=== PATIENT | male | born 1965 | race Caucasian/White ===

== ENCOUNTER 2018-12-30 10:40 | Day surgery (SDC) | payer OTHER | END 2018-12-30 17:00 | disposition home or self-care (01) | LOC: AMB-ENDOS 10:40 | DX: K57.30 Diverticulosis of large intestine without perforation or abscess without bleeding (principal) ==

== ENCOUNTER 2019-01-26 08:15 | Inpatient (IN) | payer OTHER ==
[~2019-01-26] VITALS: Ht 175.3 cm; Wt 84.8 kg
[2019-02-06] MEDS ORDERED: FENOFIBRIC ACI135 MG PO (08:17)
[2019-02-08] MEDS ORDERED: HYOSCYAMINE0.125 M1 SL (12:00)
[2019-02-08] MEDS ORDERED: OXYC1TAB9 PO (12:00)
== END 2019-02-08 12:28 | disposition home or self-care (01) | DRG 330 ==
LOC: SURG 08:15 → O/R 02-05 11:14 → SURH 02-05 11:14 → SURG 02-05 16:45 → SURH 02-05 19:34
PROVIDERS: ADMIT Surgery
PROC: 07BC4ZZ Excision of Pelvis Lymphatic, Percutaneous Endoscopic Approach (ICD-10-PCS; 2019-02-05)
PROC: 0D1B4Z4 Bypass Ileum to Cutaneous, Percutaneous Endoscopic Approach (ICD-10-PCS; 2019-02-05)
PROC: 0DJD8ZZ Inspection of Lower Intestinal Tract, Via Natural or Artificial Opening Endoscopic (ICD-10-PCS; 2019-02-05)
PROC: 0DTP4ZZ Resection of Rectum, Percutaneous Endoscopic Approach (ICD-10-PCS; principal; 2019-02-05 16:45)
DX: C20 Malignant neoplasm of rectum (principal); K92.1 Melena; K63.89 Other specified diseases of intestine; R59.0 Localized enlarged lymph nodes; E78.49 Other hyperlipidemia; D64.89 Other specified anemias

== ENCOUNTER 2019-03-16 05:35 | Day surgery (SDC) | payer OTHER ==
[~2019-03-16 05:35] MED LIST: FENOFIBRIC ACI135 MG PO; HYOSCYAMINE0.125 M1 SL; OXYC1TAB9 PO; SIMVASTATIN40 MG
[2019-03-16] MEDS ORDERED: ULTRACET PO (08:24)
== END 2019-03-16 10:23 | disposition home or self-care (01) ==
LOC: CIR.AMB 05:35
DX: C20 Malignant neoplasm of rectum (principal)
CPT/HCPCS: 36561; C1751

== ENCOUNTER → 2019-04-30 | Outpatient (CLI) | payer OTHER ==
[~2019-04-30] MED LIST changes: +ULTRACET PO
== END | disposition home or self-care (01) ==
LOC: RX STUDY 10:25
DX: C20 Malignant neoplasm of rectum (principal); K92.1 Melena; R59.0 Localized enlarged lymph nodes

== ENCOUNTER 2019-05-14 11:30 | Inpatient (IN) | payer OTHER ==
[2019-06-05] MEDS ORDERED: HYOSCYAMINE0.125 M1 SL (16:33)
[2019-06-05] MEDS ORDERED: INTESTINEX680 M1 PO (16:33)
[2019-06-05] MEDS ORDERED: OXYC1TAB9 PO (16:33)
[2019-06-05] MEDS ORDERED: VANCOMYCIN HCL1 GM PO (16:35)
== END 2019-06-05 17:23 | disposition home or self-care (01) | DRG 330 ==
LOC: SURG 05-25 10:30 → SURH 05-28 06:45 → O/R 05-28 06:45 → SURG 05-28 10:30 → SURH 05-28 11:29 → SURG 05-28 15:00 → SURH 06-02 17:05
PROVIDERS: ADMIT Surgery
PROC: 0DQB4ZZ Repair Ileum, Percutaneous Endoscopic Approach (ICD-10-PCS; principal; 2019-05-28 15:00)
PROC: 8E0ZXY6 Isolation (ICD-10-PCS; 2019-06-03)
DX: Z43.2 Encounter for attention to ileostomy (principal); C20 Malignant neoplasm of rectum; A04.72 Enterocolitis due to Clostridium difficile, not specified as recurrent; K91.89 Other postprocedural complications and disorders of digestive system; K56.7 Ileus, unspecified; D64.89 Other specified anemias; R73.01 Impaired fasting glucose

== ENCOUNTER 2020-02-02 07:56 | Day surgery (SDC) | payer OTHER ==
[~2020-02-02 07:56] MED LIST changes: +INTESTINEX680 M1 PO; +VANCOMYCIN HCL1 GM PO
== END 2020-02-02 12:45 | disposition home or self-care (01) ==
LOC: AMB-ENDOS 07:56
PROVIDERS: ATTEND Surgery
DX: K62.89 Other specified diseases of anus and rectum (principal)

== ENCOUNTER 2020-07-12 13:32 | Emergency (ER) | payer OTHER ==
[~2020-07-12] VITALS: Ht 175.3 cm; Wt 78.0 kg
[2020-07-12] MEDS ORDERED: SIMVASTATIN5 MG (13:41)
[2020-07-12] MEDS ORDERED: CLONAZEPAM0.125 MG (13:42)
== END 2020-07-12 20:52 | disposition home or self-care (01) ==
LOC: ER 13:32
DX: K80.20 Calculus of gallbladder without cholecystitis without obstruction (principal); N20.0 Calculus of kidney; Z03.818 Encounter for observation for suspected exposure to other biological agents ruled out

== ENCOUNTER 2020-08-11 05:50 | Day surgery (SDC) | payer OTHER ==
[~2020-08-11 05:50] MED LIST changes: +CLONAZEPAM0.125 MG; +SIMVASTATIN5 MG
[2020-08-11] MEDS ORDERED: ULTRACET PO (11:50)
== END 2020-08-11 13:25 | disposition home or self-care (01) ==
LOC: CIR.AMB 05:50
PROVIDERS: ATTEND Surgery
DX: C20 Malignant neoplasm of rectum (principal); Z20.828 Contact with and (suspected) exposure to other viral communicable diseases

== ENCOUNTER 2021-03-21 06:28 | Day surgery (SDC) | payer OTHER | END 2021-03-21 10:40 | disposition home or self-care (01) | LOC: AMB-ENDOS 06:28 | PROVIDERS: ATTEND Surgery | DX: K62.89 Other specified diseases of anus and rectum (principal); Z20.822 Contact with and (suspected) exposure to COVID-19 ==

== ENCOUNTER 2021-11-30 01:50 | Inpatient (IN) | payer OTHER ==
[~2021-11-30] VITALS: Ht 175.3 cm; Wt 75.7 kg
[2021-12-04] MEDS ORDERED: DICY20TA PO (13:55)
[2021-12-04] MEDS ORDERED: INTESTINEX680 M1 PO (13:55)
[2021-12-04] MEDS ORDERED: POLY119PG PO (13:56)
== END 2021-12-04 15:05 | disposition home or self-care (01) | DRG 388 ==
LOC: ER 01:50 → SEC-K 11:36 → MEDJ 11:36 → SURH 16:06 → MEDJ 16:32
PROVIDERS: ADMIT Surgery; ATTEND Surgery
PROC: BW21YZZ Computerized Tomography (CT Scan) of Abdomen and Pelvis using Other Contrast (ICD-10-PCS; principal; 2021-11-30)
DX: K56.699 Other intestinal obstruction unspecified as to partial versus complete obstruction (principal); U07.1 COVID-19; C20 Malignant neoplasm of rectum; A04.72 Enterocolitis due to Clostridium difficile, not specified as recurrent; E86.0 Dehydration; E87.8 Other disorders of electrolyte and fluid balance, not elsewhere classified

== ENCOUNTER 2023-07-20 22:44 | Inpatient (IN) | payer OTHER ==
[~2023-07-20] VITALS: Ht 175.3 cm; Wt 77.1 kg
[~2023-07-20 22:44] MED LIST changes: +DICY20TA PO; +POLY119PG PO
[2023-07-21 00:57] LABS: HEMATOCRIT 39.2 % (39.0-48.0); HEMOGLOBIN 13.5 g/dL (13-16.00); MEAN CELL VOLUME 89.3 fL (80.0-100.00); MEAN CORPUSCULAR HEMOGLOBIN 30.8 pg (27.00-32.0); MEAN CORPUSCULAR HGB CONC 34.5 g/dl (32.0-36.0); PLATELET COUNT 204 K/uL (150-450); RED BLOOD COUNT 4.39 M/uL (4.00-6.00); RED CELL DISTRIBUTION WIDTH 12.9 % (11.5-14.5)
[2023-07-21 01:10] LABS: ALBUMIN 4.1 gm/dL (3.4-5.0); BILIRUBIN TOTAL 0.74 mg/dL (0.3-1.2); CALCIUM 9.5 mg/dL (8.5-10.1); CREATININE SERUM 1.14 mg/dL (0.70-1.30); GFR 66.45; GLOBULINA 3.1 G/DL (2.4-3.5); POTASSIUM 3.65 mEq/L (3.5-5.1); TOTAL PROTEIN 7.2 gm/dL (6.4-8.2)
[2023-07-22 07:24] LABS: ALBUMIN 3.3 gm/dL (3.4-5.0); BILIRUBIN TOTAL 1.22 mg/dL (0.3-1.2); CALCIUM 8.3 mg/dL (8.5-10.1); CREATININE SERUM 1.28 mg/dL (0.70-1.30); GFR 58.13; GLOBULINA 2.6 G/DL (2.4-3.5); HEMATOCRIT 36.5 % (39.0-48.0); HEMOGLOBIN 12.8 g/dL (13-16.00); MEAN CELL VOLUME 88.4 fL (80.0-100.00); PLATELET COUNT 178 K/uL (150-450); POTASSIUM 3.82 mEq/L (3.5-5.1); RED BLOOD COUNT 4.13 M/uL (4.00-6.00); TOTAL PROTEIN 5.9 gm/dL (6.4-8.2)
[2023-07-22 07:47] LABS: C-REACTIVE PROTEIN 0.32 MG/DL (0.00-0.29)
[2023-07-22] MEDS ORDERED: AMOX1TAB5 PO (14:52)
[2023-07-22] MEDS ORDERED: PEPCID AC20 MG PO (14:52)
== END 2023-07-22 18:30 | disposition home or self-care (01) | DRG 371 ==
LOC: ER 22:44 → SURH 07-21 12:44
PROVIDERS: General Practice; ADMIT Surgery; ATTEND Surgery
PROC: BW21ZZZ Computerized Tomography (CT Scan) of Abdomen and Pelvis (ICD-10-PCS; principal; 2023-07-21)
DX: A04.72 Enterocolitis due to Clostridium difficile, not specified as recurrent (principal); U07.1 COVID-19; K91.89 Other postprocedural complications and disorders of digestive system; K56.7 Ileus, unspecified; C20 Malignant neoplasm of rectum; K56.609 Unspecified intestinal obstruction, unspecified as to partial versus complete obstruction; R15.9 Full incontinence of feces; R19.7 Diarrhea, unspecified; D64.9 Anemia, unspecified; R73.01 Impaired fasting glucose; R78.5 Finding of other psychotropic drug in blood; M62.838 Other muscle spasm; K62.89 Other specified diseases of anus and rectum; R11.2 Nausea with vomiting, unspecified